=== PATIENT | male | born 1995 | race Caucasian/White ===

== ENCOUNTER 2024-07-18 00:35 | Emergency (ER) | payer OTHER ==
[~2024-07-18] VITALS: Ht 170.2 cm; Wt 79.8 kg
[2024-07-18 01:21] LABS: BASOPHILS 0.6 % (0-2); EOSINOPHILS 0.5 % (0-6); HEMATOCRIT 36.9 % (35.0-50.0); HEMOGLOBIN 12.6 g/dL (12.0-18.0); LYMPHOCYTES 30.9 % (24-44); MCH 29.9 (27-36); MCHC 34.2 g/dl (30-36); MCV 87.5 fl (81-99); MONOCYTES 6.2 % (0-12); NEUTROPHILS 61.8 % (39-80); PLATELET COUNT 247 K/uL (140-440); RBC 4.22 M/ul (4.3-5.7); RDW 13.9 (10.5-15.0)
[2024-07-18 01:53] VITALS: BP 139/86
== END 2024-07-18 01:56 | disposition home or self-care (01) ==
LOC: ED 00:35
PROVIDERS: Family Medicine
DX: M54.2 Cervicalgia (principal); S10.91XA Abrasion of unspecified part of neck, initial encounter; X83.8XXA Intentional self-harm by other specified means, initial encounter
CPT/HCPCS: 36415; 70360; 85025; 99285